=== PATIENT | female | born 1960 | race Caucasian/White ===

== ENCOUNTER 2017-09-03 04:07 | Emergency (ER) | payer OTHER ==
[~2017-09-03] VITALS: Ht 154.9 cm; Wt 88.9 kg
[2017-09-03 05:16] VITALS: BP 164/101
== END 2017-09-03 05:16 | disposition home or self-care (01) ==
LOC: ED 04:07
DX: J20.9 Acute bronchitis, unspecified (principal); I10 Essential (primary) hypertension; E03.9 Hypothyroidism, unspecified; Z90.710 Acquired absence of both cervix and uterus
CPT/HCPCS: J1885; Q0092